=== PATIENT | male | born 1945 | race African-American/Black ===

== ENCOUNTER 2016-05-23 10:06 | Emergency (ER) | payer BC ==
[~2016-05-23] VITALS: Ht 157.5 cm; Wt 73.5 kg
[2016-05-23 10:14] VITALS: BP 152/79
[2016-05-23] MEDS ORDERED: KETOROLAC TROMETH 30 MG/ML 1ML VIAL IM ONE (11:00)
[2016-05-23] MEDS ORDERED: methylPREDNISolone SOD SUCC 125 MG/2 ML VL IM ONE (11:00)
== END 2016-05-23 11:31 | disposition home or self-care (01) ==
LOC: ER 10:07
DX: M10.9 Gout, unspecified (principal); I10 Essential (primary) hypertension
CPT/HCPCS: 73610; 73630; 96372; 99284; J1885; J2930